=== PATIENT | male | born 1955 | race African-American/Black ===

== ENCOUNTER 2017-12-27 12:37 | Inpatient (IN) | payer MEDICAID ==
[~2017-12-27] VITALS: Ht 175.3 cm; Wt 98.0 kg
[2017-12-27] MEDS ORDERED: SODIUM CHLORIDE 0.9% 1,000 ML IV ONE (15:11)
[2017-12-27] MEDS ORDERED: VISCOUS LIDOCAINE 2% 15 ML UDC PO STA (15:11)
[2017-12-27] MEDS ORDERED: MAGNESIUM/ALUMINUM HYDROXIDE/SIMETHICONE 30ML UDC PO STA (15:11)
[2017-12-27 16:16] LABS: CHLORIDE 101 mEq/L (98-107)
[2017-12-27 16:17] LABS: BASOPHILS % 0.6 % (0.0-2.0); EOSINOPHILS % 8.1 % (0.0-5.0); HEMATOCRIT. 37.4 % (42.0-52.0); HEMOGLOBIN. 12.9 g/dL (14.0-18.0); INR 1.2; LYMPHOCYTES % 17.9 % (20.0-50.0); MEAN CORPUSCULAR HEMOGLOBIN 31.3 pg (28.0-32.0); MEAN CORPUSCULAR VOLUME 90.9 fL (80.0-94.0); MEAN PLATELET VOLUME 8.6 fl (7.4-10.4); MONOCYTES % 13.3 % (2.0-8.0); NEUTROPHILS % 60.1 % (40.0-76.0); PLATELET 285 x1000/uL (130-400); PROTHROMBIN TIME 12.1 sec (9.1-11.1); RED BLOOD CELL COUNT 4.12 mill/uL (4.7-6.1); RED CELL DISTRIBUTION WIDTH 13.7 % (11.6-14.6)
[2017-12-27 17:36] LABS: CLARITY URINE CLEAR (CLEAR); COLOR URINE ORANGE (YELLOW); KETONES URINE TRACE (NEGATIVE); LEUKOCYTE ESTERASE URINE TRACE (NEGATIVE); NITRITE URINE NEGATIVE (NEGATIVE); OCCULT BLOOD URINE NEGATIVE (NEGATIVE); PROTEIN URINE NEGATIVE (NEGATIVE); SPECIFIC GRAVITY URINE 1.014 (1.005-1.030); UROBILINOGEN URINE 0.2 E.U./dL (0.2-1.0)
[2017-12-27] MEDS ORDERED: IPRATROPIUM/ALBUTEROL 0.5-3(2.5)MG/3ML NEB INH PRN (19:15)
[2017-12-27] MEDS ORDERED: ACETAMINOPHEN 325MG TABLET PO PRN (19:15)
[2017-12-27] MEDS ORDERED: NA PHOS,M-B/NA PHOS,DI-BA ENEMA 118ML PR PRN (19:15)
[2017-12-27] MEDS ORDERED: TRAMADOL 50MG TABLET PO PRN (19:15)
[2017-12-27] MEDS ORDERED: ONDANSETRON HCL 4MG/2ML INJ IV PRN (19:15)
[2017-12-27] MEDS ORDERED: LORAZEPAM 0.5MG TABLET PO PRN (19:15)
[2017-12-27] MEDS ORDERED: DOCUSATE SODIUM 100MG CAPSULE PO PRN (19:15)
[2017-12-27] MEDS ORDERED: NITROGLYCERIN 0.4MG TABLET SL SL PRN (19:15)
[2017-12-27] MEDS ORDERED: CLONIDINE 0.1MG TABLET PO PRN (19:15)
[2017-12-27] MEDS ORDERED: MAGNESIUM/ALUMINUM HYDROXIDE/SIMETHICONE 30ML UDC PO PRN (19:15)
[2017-12-27 20:09] LABS: ETHANOL BLOOD < 10 mg/dL
[2017-12-27 20:11] LABS: TOTAL IRON BINDING CAPACITY 237 ug/dL (250-450)
[2017-12-27 20:31] LABS: FOLIC ACID (FOLATE) SERUM >20 ng/mL ng/mL (>5.38)
[2017-12-27 20:43] LABS: VITAMIN B12 SERUM >2000 pg/mL pg/mL (211-911)
[2017-12-27 22:00] VITALS: BP 147/91
[2017-12-27] MEDS: DEXT 5%/0.45% NACL 1000ML 1,000 ML IV SCH (23:49)
[2017-12-27] MEDS: METRONIDAZOLE 500 MG PREMIX 100 ML IV SCH (23:50)
[2017-12-27] MEDS: METOPROLOL TARTRATE 25MG TABLET PO SCH (23:55)
[2017-12-27] MEDS: ENOXAPARIN 30MG/0.3ML SYR SUBCUT SCH (23:56)
[2017-12-27] MEDS: ZOLPIDEM TARTRATE 5MG TABLET PO PRN (23:56)
[2017-12-28] VITALS: BP 148/88
[2017-12-28] MEDS ORDERED: CEFTRIAXONE 1 G PREMIX 50 ML IV SCH (01:00)
[2017-12-28 04:00] VITALS: BP 122/78
[2017-12-28] MEDS: MORPHINE SULFATE 4 MG/ML CPJ (NOT FOR IM USE) IV PRN ×2 (04:37→20:45)
[2017-12-28] MEDS ORDERED: DIPH50CA47 MT (05:25)
[2017-12-28] MEDS ORDERED: IBUP-2028 MT (05:25)
[2017-12-28 08:00] VITALS: BP 141/81
[2017-12-28] MEDS ORDERED: INFLUENZA VIRUS VACCINE(AFLURIA) 0.5ML SYR IM ONE (08:00)
[2017-12-28] MEDS: METRONIDAZOLE 500 MG PREMIX 100 ML IV SCH ×2 (08:50→17:00)
[2017-12-28] MEDS: PANTOPRAZOLE SODIUM 40 MG/VIAL IV SCH (08:55)
[2017-12-28] MEDS: METOPROLOL TARTRATE 25MG TABLET PO SCH ×2 (08:55→20:42)
[2017-12-28] MEDS: ENOXAPARIN 30MG/0.3ML SYR SUBCUT SCH (08:56)
[2017-12-28 09:50] LABS: BASOPHILS % 1.1 % (0.0-2.0); EOSINOPHILS % 8.1 % (0.0-5.0); HEMATOCRIT. 37.4 % (42.0-52.0); HEMOGLOBIN. 12.7 g/dL (14.0-18.0); LYMPHOCYTES % 15.4 % (20.0-50.0); MEAN CORPUSCULAR HEMOGLOBIN 30.9 pg (28.0-32.0); MEAN CORPUSCULAR VOLUME 90.6 fL (80.0-94.0); MEAN PLATELET VOLUME 8.7 fl (7.4-10.4); MONOCYTES % 12.7 % (2.0-8.0); NEUTROPHILS % 62.7 % (40.0-76.0); PLATELET 270 x1000/uL (130-400); RED BLOOD CELL COUNT 4.13 mill/uL (4.7-6.1); RED CELL DISTRIBUTION WIDTH 13.8 % (11.6-14.6)
[2017-12-28 09:58] LABS: CHLORIDE 103 mEq/L (98-107)
[2017-12-28 11:59] VITALS: BP 136/83
[2017-12-28] MEDS: DEXT 5%/0.45% NACL 1000ML 1,000 ML IV SCH ×2 (14:25→15:00)
[2017-12-28 16:00] VITALS: BP 130/78
[2017-12-28 19:32] LABS: CREATINE KINASE 173 IU/L (39-308)
[2017-12-28 19:33] LABS: CREATINE KINASE MB FRACTION 1.4 ng/mL (0.5-3.6)
[2017-12-28 20:00] VITALS: BP 144/88
[2017-12-28] MEDS: CEFTRIAXONE 1 G PREMIX 50 ML IV SCH (20:46)
[2017-12-28] MEDS: ZOLPIDEM TARTRATE 5MG TABLET PO PRN (22:46)
[2017-12-29] VITALS: BP 121/74
[2017-12-29] MEDS: METRONIDAZOLE 500 MG PREMIX 100 ML IV SCH ×3 (01:16→16:00)
[2017-12-29] MEDS: DEXT 5%/0.45% NACL 1000ML 1,000 ML IV SCH ×3 (03:06→21:15)
[2017-12-29 04:00] VITALS: BP 122/75
[2017-12-29 06:30] LABS: BASOPHILS % 0.9 % (0.0-2.0); EOSINOPHILS % 5.5 % (0.0-5.0); HEMATOCRIT. 34.7 % (42.0-52.0); LYMPHOCYTES % 16.2 % (20.0-50.0); MEAN CORPUSCULAR HEMOGLOBIN 31.4 pg (28.0-32.0); MEAN CORPUSCULAR VOLUME 90.9 fL (80.0-94.0); MONOCYTES % 13.5 % (2.0-8.0); NEUTROPHILS % 63.9 % (40.0-76.0); PLATELET 268 x1000/uL (130-400); RED BLOOD CELL COUNT 3.82 mill/uL (4.7-6.1); RED CELL DISTRIBUTION WIDTH 13.7 % (11.6-14.6)
[2017-12-29 06:46] LABS: INR 1.2; PARTIAL THROMBOPLASTIN TIME 28.4 sec (23.4-31.0); PROTHROMBIN TIME 12.2 sec (9.1-11.1)
[2017-12-29 08:00] VITALS: BP 128/89
[2017-12-29 08:01] LABS: CHLORIDE 103 mEq/L (98-107)
[2017-12-29] MEDS: PANTOPRAZOLE SODIUM 40 MG/VIAL IV SCH (08:57)
[2017-12-29] MEDS: METOPROLOL TARTRATE 25MG TABLET PO SCH ×2 (08:58→21:30)
[2017-12-29 12:00] VITALS: BP 124/75
[2017-12-29] MEDS ORDERED: IOHEXOL-300 100 ML BOTTLE ONE (14:07)
[2017-12-29] MEDS ORDERED: SIMETHICONE 40 MG/0.6 ML 30ML ONE (14:07)
[2017-12-29 16:00] VITALS: BP 148/88
[2017-12-29 16:30] VITALS: BP 136/79
[2017-12-29] MEDS ORDERED: LIDOCAINE HCL/PF 1% 10 MG/ML 5ML VIAL ONE (17:24)
[2017-12-29] MEDS ORDERED: FENTANYL CITRATE/PF 50MCG/ML 2ML VIAL ONE (17:24)
[2017-12-29] MEDS ORDERED: MIDAZOLAM HCL 2 MG/2 ML VIAL ONE (17:24)
[2017-12-29] MEDS ORDERED: PROPOFOL 200MG/20ML VIAL IV ONE (17:24)
[2017-12-29] MEDS ORDERED: ROCURONIUM BROMIDE 10MG/ML VIAL 5ML IV ONE (17:27)
[2017-12-29] MEDS ORDERED: EPHEDRINE SULFATE 50MG/ML VIAL ONE (18:19)
[2017-12-29] MEDS ORDERED: SODIUM CHLORIDE 0.9% 10ML VIAL ONE (18:19)
[2017-12-29] MEDS ORDERED: MORPHINE SULFATE 2 MG/ML CPJ (NOT FOR IM USE) IV PRN (19:15)
[2017-12-29] MEDS: CEFTRIAXONE 1 G PREMIX 50 ML IV SCH (21:15)
[2017-12-29] MEDS: MORPHINE SULFATE 4 MG/ML CPJ (NOT FOR IM USE) IV PRN (21:39)
[2017-12-30] VITALS: BP 125/69
[2017-12-30] MEDS: ZOLPIDEM TARTRATE 5MG TABLET PO PRN (00:08)
[2017-12-30 04:00] VITALS: BP 133/77
[2017-12-30 08:00] VITALS: BP 119/76
[2017-12-30] MEDS: DEXT 5%/0.45% NACL 1000ML 1,000 ML IV SCH (08:50)
[2017-12-30] MEDS: PANTOPRAZOLE SODIUM 40 MG/VIAL IV SCH (08:50)
[2017-12-30] MEDS: METRONIDAZOLE 500 MG PREMIX 100 ML IV SCH ×2 (08:50)
[2017-12-30] MEDS: METOPROLOL TARTRATE 25MG TABLET PO SCH (09:00)
== END 2017-12-30 10:15 | disposition left against medical advice (07) ==
LOC: ER 15:05 → 6EST 19:15 → ENRESERV 20:31
PROVIDERS: ADMIT Internal Medicine; ATTEND Internal Medicine
PROC: BF131ZZ Fluoroscopy of Gallbladder and Bile Ducts using Low Osmolar Contrast (ICD-10-PCS; 2017-12-29)
PROC: 0F798ZZ Dilation of Common Bile Duct, Via Natural or Artificial Opening Endoscopic (ICD-10-PCS; principal; 2017-12-29 15:00)
DX: K80.50 Calculus of bile duct without cholangitis or cholecystitis without obstruction (principal); D64.9 Anemia, unspecified; I10 Essential (primary) hypertension; K59.00 Constipation, unspecified; N39.0 Urinary tract infection, site not specified; Z53.21 Procedure and treatment not carried out due to patient leaving prior to being seen by health care provider; K57.30 Diverticulosis of large intestine without perforation or abscess without bleeding; R63.4 Abnormal weight loss; Z68.31 Body mass index [BMI] 31.0-31.9, adult
CPT/HCPCS: 36415; 71045; 74176; 74181; 74328; 76705; 82550; 82553; 82607; 82746; 83540; 83550; 84484; 90686; 93005; 93970; 96360; 96361; 99285; A4216; C1726; C1769; C9113; G0482; J0696; J1650; J2250; J2270; J2704; J3010; J3490; J7030; Q9967